=== PATIENT | female | born 1955 | race African-American/Black ===

== ENCOUNTER 2023-09-02 08:18 | Day surgery (SDC) | payer OTHER ==
[2023-08-27 11:45] VITALS: BMI 30.2
[2023-09-02 08:46] VITALS: RESP 18
[2023-09-02 09:45] VITALS: TEMP 97
[2023-09-02 10:20] VITALS: BP 102/70; PULSE 73
== END 2023-09-02 10:26 | disposition home or self-care (01) ==
LOC: FASU-ENDO 08:18
PROVIDERS: ATTEND Internal Medicine Gastroenterology
PROC: 0DB98ZX Excision of Duodenum, Via Natural or Artificial Opening Endoscopic, Diagnostic (ICD-10-PCS; 2023-09-02)
PROC: 0DB68ZX Excision of Stomach, Via Natural or Artificial Opening Endoscopic, Diagnostic (ICD-10-PCS; 2023-09-02)
PROC: 0DJD8ZZ Inspection of Lower Intestinal Tract, Via Natural or Artificial Opening Endoscopic (ICD-10-PCS; principal; 2023-09-02 09:15)
DX: D50.9 Iron deficiency anemia, unspecified (principal); K57.30 Diverticulosis of large intestine without perforation or abscess without bleeding; K64.1 Second degree hemorrhoids; K64.4 Residual hemorrhoidal skin tags; K29.50 Unspecified chronic gastritis without bleeding; K29.80 Duodenitis without bleeding